=== PATIENT | female | born 1965 | race Caucasian/White ===

== ENCOUNTER → 2016-06-10 | Outpatient (CLI) | payer OTHER ==
--- NOTE | ~2016-06-10 | MY11 ---
[facility] A Service of [facility] RADIOLOGY TEXT RESULTS PATIENT: LEIGH ANN BOSS LOCATION: [facility] : 67 UNIT #: [id number] AGE: [address]: Taylor Barber MD SEX: F ORDER DR: [id number] [place], [place] [address] [id number] MR#: [id number] Acc #: [id number] NAME: LEIGH ANN BOSS : 1965 SEX: F STUDY DATE/TIME: 06/10/2016 7:49 UNIT: [facility] ROOM: STUDY DESCRIPTION: MY Mammogram Screening Dig Raimundo Attending Physician: Zuleyma Barber M.D. Referring Physician: Zuleyma Barber M.D. Ordering Physician: Zuleyma Barber M.D. Primary Care Physician: Zuleyma Barber M.D. MEDICAL IMAGING REPORT This report is preliminary unless electronic signature is present EXAMINATION Bilateral digital screening mammogram with CAD. DATE 06/10/2016 HISTORY 50-year-old female with no personal or family history of breast cancer of current complaints. COMPARISON Bilateral diagnostic mammogram, 06/04/2015. Bilateral screening mammogram 05/16/2014 and 05/03/2013. FINDINGS CC and MLO views were obtained of each breast utilizing digital technique and reviewed with an FDA-approved CAD device. Scattered fibroglandular densities are present bilaterally. No new or suspicious nodule is identified. No architectural distortion features. Intramammary lymph node within the upper outer right breast unchanged. IMPRESSION BIRADS 2. Benign findings. Routine bilateral screening mammogram is recommended in 1 year. Patients over the age of 40 are entered into a reminder system with target due date for the next mammogram. A result letter will also be sent to the patient. BIRADS: 2 Benign finding. Dictated by... [facility] A Service [facility] RADIOLOGY TEXT RESULTS PATIENT: LEIGH ANN BOSS LOCATION: [facility] : 67 UNIT #: [id number] AGE: [address]: Taylor Barber MD SEX: F ORDER DR: Marylin Carreon M.D. THIS IS AN ELECTRONICALLY VERIFIED REPORT Marylin Carreon M.D. at 06/11/2016 7:02 AM NATHAN/nic TD: 06/10/2016 11:24 JOB #: [id number] MEDICAL IMAGING REPORT Page 1 of 1 COPY
== END | disposition home or self-care (01) ==
LOC: CWCC 07:24
DX: Z12.31 Encounter for screening mammogram for malignant neoplasm of breast (principal)
CPT/HCPCS: G0202